=== PATIENT | male | born 1995 | race American Indian/Alaskan Native ===

== ENCOUNTER 2021-03-24 13:19 | Emergency (ER) | payer SELFPAY ==
--- NOTE | 2021-03-24 18:02 | XRay Report ---
Right shoulder, 3 views Right clavicle, 2 views HISTORY: Shoulder pain after fall COMPARISON: None FINDINGS: Right shoulder: No acute fracture or malalignment. Subacromial space is preserved. No significant art hritis. Soft tissues are unremarkable. Right clavicle: No acute fracture. The right AC joint appears intact. Soft tissues are unremarkable. Signer Name: Carlo Balbuena MD Signed: 03/24/2021 5:57 PM Workstation Name: [id number]
--- NOTE | 2021-03-24 18:40 | Emergency Department Report ---
Upper Extremity - HPI Chief Complaint: Shoulder Injury Stated Complaint: DISLOCATED COLLERBONE Time Seen by Provider: 03/24/21 17:13 Upper Extremity: Right Shoulder Occurred When: 1 Day Mechanism: Fall (Had a tussle yesterday fell down onto concrete landing on his right shoulder resulting in pain swelling and what he thinks is the deformity thinks that his shoulder is dislocated) Symptoms: Yes Pain with Movement, Yes Limited Range of Movement, No Bruising/Ecchymosis, No Laceration or Abrasion ED Review of Systems ROS: Stated complaint: DISLOCATED COLLERBONE Other details as noted in HPI Comment: All other systems reviewed and negative ED Past Medical Hx - Past Medical History Previous Medical History?: No - Surgical History Past Surgical History?: No - Social History Smoking Status: Current Every Day Smoker - Medications Home Medications: Home Medications Medication Instructions Recorded Confirmed Last Taken Type Ketorolac [Toradol] 10 mg PO Q6H PRN #20 tablet 03/24/21 Unknown Rx methOCARBAMOL [Robaxin TAB] 750 mg PO Q8H #20 tablet 03/24/21 Unknown Rx Upper Extremity Exam - Exam General: Vital signs noted. No distress. Alert and acting appropriately. Head and Torso: No HEENT Abnormality, No Neck Tenderness, No Chest/Lungs Abnormality, No Abdominal Tenderness, No Back Tenderness Shoulder Exam: Yes Shoulder Tenderness (Some discomfort to the right clavicle region and the lateral third aspect. No shoulder deformity no sulcus sign is noted. Pulses 2+ capillary refills are brisk), No Clavicle Tenderness, No Normal Range of Motion in Shoulder (Somewhat limited due to pain), No Shoulder Deformity, No AC Joint Tenderness Arm Exam: No Arm/Humerus Tenderness, No Arm Deformity Elbow: No Elbow Tenderness, No Normal Range of Motion in Elbow, No Elbow Deformity Forearm: No Forearm Tenderness, No Forearm Deformity, No Pain with Pronation, No Pain with Supination Wrist: Yes Normal ROM in Wrist, No Wrist Tenderness, No Wrist Deformity, No Snuffbox Tenderness, No Pain with Axial Thumb Compression Hand: Yes Normal ROM in Digit(s), No Hand Tenderness, No Hand Deformity, No Digit Tenderness, No Digit(s) Deformity, No Tendon Dysfunction CMS Exam: No Broken Skin, No Normal Distal Pulses, No Normal Capillary Refill, N o Normal Distal Sensation ED Course Vital Signs 03/24/21 17:09 Temperature 99.1 F Pulse Rate 61 Respiratory 18 Rate Blood Pressure 151/75 O2 Sat by Pulse 100 Oximetry ED Medical Decision Making - Radiology Data Radiology results: report reviewed [facility], [place] [address] [place] [address] XRay Report Signed Patient: BHAKTI FLORES MR#: [id number] : 1995 Acct:[id number] Age/Sex: 25 / M ADM Date: 03/24/21 Loc: ED Attending Dr: Ordering Physician: CHRISTIAN BLUM Date of Service: 03/24/21 Procedure(s): XR shoulder 2+V RT Accession Number(s): [id number] cc: CHRISTIAN BLUM Fluoro Time In Minutes: Right shoulder, 3 views Right clavicle, 2 views HISTORY: Shoulder pain after fall COMPARISON: None FINDINGS: Right shoulder: No acute fracture or malalignment. Subacromial space is preserved. No significant arthritis. Soft tissues are unremarkable. Right clavicle: No acute fracture. The right AC joint appears intact. Soft tissues are unremarkable. Signer Name: Bharti Heaton MD Signed: 03/24/2021 5:57 PM Workstation Name: [id number] Transcribed By: JS Dictated By: BHARTI HEATON MD Electronically Authenticated By: BHARTI HEATON MD Signed Date/Time: 03/24/211756 DD/ 54 TD/TT: Print Cancel Critical care attestation.: If time is entered above; I have spent that time in minutes in the direct care of this critically ill patient, excluding procedure time. ED Disposition Clinical Impression: Shoulder contusion Disposition: HOME / SELF CARE / HOMELESS Is pt being admited?: No Does the pt Need Aspirin: No Condition: Stable Instructions: Contusion, Acromioclavicular Separation, How to Use Cold Therapy Prescriptions: methOCARBAMOL [Robaxin TAB] 750 mg PO Q8H #20 tablet Ketorolac [Toradol] 10 mg PO Q6H PRN #20 tablet PRN Reason: Pain Referrals: [facility] [Provider Group] - 3-5 Days
[2021-03-24] MEDS ORDERED: HYDROcodone/ACETAMINOPHEN 5-325 MG TAB PO STA (18:41)
[2021-03-24 19:15] VITALS: BP 141/54
== END 2021-03-24 19:16 | disposition home or self-care (01) ==
LOC: ED 13:19
DX: S40.011A Contusion of right shoulder, initial encounter (principal); F17.200 Nicotine dependence, unspecified, uncomplicated; W18.30XA Fall on same level, unspecified, initial encounter; Y93.89 Activity, other specified; Y92.89 Other specified places as the place of occurrence of the external cause; Y99.8 Other external cause status
CPT/HCPCS: 99283